=== PATIENT | male | born 1955 | race Caucasian/White ===

== ENCOUNTER 2016-08-16 09:00 | Outpatient (RCR) | payer BC ==
[2014-09-14 14:57] VITALS: BP 126/77
[~2016-08-16 09:00] MED LIST: MOBIC7.5 M1 PO; TESTOSTERONE1 POW PO; ULTRAM 50MG TAB50 MG PO
== END 2016-08-16 09:50 | disposition home or self-care (01) ==
LOC: PT 09:00
DX: M75.42 Impingement syndrome of left shoulder (principal)

== ENCOUNTER → 2017-07-20 | Outpatient (CLI) | payer BC ==
[2014-09-14 14:57] VITALS: BP 126/77
[2017-07-20 10:02] LABS: HEMOGLOBIN 14.9 g/dL (13.5-18.0); MEAN PLATELET VOLUME 10.5 fl (7.4-10.4); RED BLOOD COUNT 4.94 M/mm3 (4.20-5.60); WHITE BLOOD COUNT 5.7 K/mm3 (4.8-10.8)
[2017-07-20 10:27] LABS: ALBUMIN 3.9 g/dL (3.5-5.0); BUN/CREATININE RATIO 20.9 (6.0-26.0); CALCIUM 9.1 mg/dL (8.4-10.2); POTASSIUM 4.1 mmol/L (3.6-5.0); TOTAL BILIRUBIN 0.7 mg/dL (0.2-1.3); TOTAL PROTEIN 6.5 g/dL (6.3-8.2)
== END ==
LOC: LAB 09:52
PROVIDERS: Family Medicine
DX: E66.9 Obesity, unspecified (principal); Z00.00 Encounter for general adult medical examination without abnormal findings; I10 Essential (primary) hypertension

== ENCOUNTER → 2018-12-16 | Outpatient (CLI) | payer BC ==
[2014-09-14 14:57] VITALS: BP 126/77
== END ==
LOC: RAD 15:09
DX: M48.07 Spinal stenosis, lumbosacral region (principal); M51.36 Other intervertebral disc degeneration, lumbar region; M47.816 Spondylosis without myelopathy or radiculopathy, lumbar region; M54.30 Sciatica, unspecified side

== ENCOUNTER 2019-02-17 08:30 | Outpatient (RCR) | payer BC ==
[2014-09-14 14:57] VITALS: BP 126/77
== END 2019-02-17 09:00 | disposition still patient (30) ==
LOC: PT 08:30
DX: M48.062 Spinal stenosis, lumbar region with neurogenic claudication (principal); M43.16 Spondylolisthesis, lumbar region; M54.12 Radiculopathy, cervical region; M54.16 Radiculopathy, lumbar region; M43.8X9 Other specified deforming dorsopathies, site unspecified

== ENCOUNTER 2021-03-15 12:54 | Emergency (ER) | payer BC ==
[~2021-03-15] VITALS: Ht 175.3 cm; Wt 96.8 kg
[~2021-03-15 12:54] MED LIST changes: +MOBIC15 M1 PO; -MOBIC7.5 M1 PO; -ULTRAM 50MG TAB50 MG PO; +ULTRAM50 M1 PO
[2021-03-15 14:33] LABS: BASO # 0.03 (0.02-0.10); EOS # 0.05 (0.04-0.40); EOS % 0.5 % (0.0-4.0); HEMOGLOBIN 16.1 g/dL (13.5-18.0); LYMPH# 1.02 (1.50-4.00); MEAN CELL VOLUME 89 fl (78-100); MEAN CORPUSCULAR HEMOGLOBIN 31 pg (27-31); MEAN CORPUSCULAR HGB CONC 34 g/dL (33-37); MEAN PLATELET VOLUME 9.9 fl (7.4-10.4); MONO # 0.41 (0.20-0.80); NEU # 8.88 (1.40-6.50); PLATELET COUNT 213 K/mm3 (130-400); RED BLOOD COUNT 5.27 M/mm3 (4.20-5.60); RED CELL DISTRIBUTION WIDTH 12.4 % (11.5-14.5); WHITE BLOOD COUNT 10.4 K/mm3 (4.8-10.8)
[2021-03-15 14:43] LABS: ALBUMIN 4.4 g/dL (3.4-4.8); POTASSIUM 4.7 mmol/L (3.5-5.1)
[2021-03-15 14:44] LABS: CALCIUM 9.3 mg/dL (8.3-10.5)
[2021-03-15 14:46] LABS: TOTAL PROTEIN 7.2 g/dL (6.2-8.1)
[2021-03-15 14:47] LABS: TOTAL BILIRUBIN 0.7 mg/dL (0.2-1.2)
[2021-03-15] MEDS ORDERED: NORCO 10-325 T1 EACH PO (15:07)
[2021-03-15 15:48] VITALS: BP 153/95
== END 2021-03-15 15:22 | disposition home or self-care (01) ==
LOC: ED 12:54
PROVIDERS: Nurse Practitioner
DX: S09.90XA Unspecified injury of head, initial encounter (principal); S40.012A Contusion of left shoulder, initial encounter; S00.83XA Contusion of other part of head, initial encounter; M54.2 Cervicalgia; I10 Essential (primary) hypertension; E66.9 Obesity, unspecified; G89.29 Other chronic pain; Z79.891 Long term (current) use of opiate analgesic; W20.8XXA Other cause of strike by thrown, projected or falling object, initial encounter

== ENCOUNTER 2021-03-22 12:27 | Emergency (ER) | payer BC ==
[~2021-03-22] VITALS: Ht 175.3 cm; Wt 96.8 kg
[~2021-03-22 12:27] MED LIST changes: +NORCO 10-325 T1 EACH PO
[2021-03-22 13:26] LABS: BASO # 0.03 (0.02-0.10); EOS # 0.08 (0.04-0.40); HEMATOCRIT 43.9 % (42.0-52.0); HEMOGLOBIN 14.9 g/dL (13.5-18.0); LYMPH# 1.36 (1.50-4.00); MEAN CELL VOLUME 90 fl (78-100); MEAN CORPUSCULAR HEMOGLOBIN 31 pg (27-31); MEAN CORPUSCULAR HGB CONC 34 g/dL (33-37); MEAN PLATELET VOLUME 10.1 fl (7.4-10.4); NEU # 6.46 (1.40-6.50); PLATELET COUNT 212 K/mm3 (130-400); RED BLOOD COUNT 4.87 M/mm3 (4.20-5.60); RED CELL DISTRIBUTION WIDTH 12.3 % (11.5-14.5); WHITE BLOOD COUNT 8.3 K/mm3 (4.8-10.8)
[2021-03-22 13:36] LABS: POTASSIUM 3.6 mmol/L (3.5-5.1)
[2021-03-22 13:37] LABS: CALCIUM 8.9 mg/dL (8.3-10.5)
[2021-03-22 14:42] VITALS: BP 163/95
== END 2021-03-22 14:48 | disposition home or self-care (01) ==
LOC: ED 12:27
PROVIDERS: Physician Assistant
DX: F07.81 Postconcussional syndrome (principal)
CPT/HCPCS: J1885; J2550

== ENCOUNTER → 2021-11-21 | Outpatient (CLI) | payer MEDICARE, BC ==
[2021-11-21 11:04] LABS: BASO # 0.04 K/mm3 (0.02-0.10); EOS # 0.12 K/mm3 (0.04-0.40); EOS % 2.5 % (0.0-4.0); HEMATOCRIT 43.8 % (42.0-52.0); HEMOGLOBIN 14.7 g/dL (13.5-18.0); LYMPH# 1.27 K/mm3 (1.50-4.00); MEAN CELL VOLUME 90 fl (78-100); MEAN CORPUSCULAR HEMOGLOBIN 30 pg (27-31); MEAN CORPUSCULAR HGB CONC 34 g/dL (33-37); MEAN PLATELET VOLUME 10.5 fl (7.4-10.4); MONO # 0.31 K/mm3 (0.20-0.80); NEU # 3.13 K/mm3 (1.40-6.50); PLATELET COUNT 217 K/mm3 (130-400); RED BLOOD COUNT 4.85 M/mm3 (4.20-5.60); RED CELL DISTRIBUTION WIDTH 12.5 % (11.5-14.5); WHITE BLOOD COUNT 4.9 K/mm3 (4.8-10.8)
[2021-11-21 11:17] LABS: POTASSIUM 4.6 mmol/L (3.5-5.1)
[2021-11-21 11:20] LABS: TOTAL PROTEIN 6.2 g/dL (6.2-8.1)
[2021-11-21 11:21] LABS: TOTAL BILIRUBIN 0.5 mg/dL (0.2-1.2)
== END ==
LOC: LAB 10:12
PROVIDERS: Family Medicine
DX: Z00.00 Encounter for general adult medical examination without abnormal findings (principal); E78.5 Hyperlipidemia, unspecified; G89.29 Other chronic pain; F32.A Depression, unspecified; I10 Essential (primary) hypertension; G47.00 Insomnia, unspecified; E66.9 Obesity, unspecified; M19.90 Unspecified osteoarthritis, unspecified site